=== PATIENT | female | born 1945 | race Caucasian/White ===

== ENCOUNTER 2024-07-06 12:35 | Inpatient (IN) | payer MEDICARE, SELFPAY ==
[2024-07-06] VITALS (7 sets, daily range): BP systolic 102–132; BP diastolic 54–76; PULSE 80–120; RESP 13–20; TEMP 36.6–37.1; O2SAT 95–99; BMI 19.2; BMI 19.8
--- NOTE | ~2024-07-06 | XR_ITS ---
EXAMINATION: XR HIP, RIGHT CLINICAL INFORMATION: Right hip externally rotated and shortened COMPARISON: None available. TECHNIQUE: Single view of the pelvis and Two views of the right hip. FINDINGS: Acute displaced right femur intertrochanteric fracture extending to the right greater and lesser trochanter with varus angulation of the proximal femur . The left hip is adequately aligned. Bilateral sacroiliac joints and pubic symphysis are intact. No additional fractures are identified. Degenerative changes of the lower lumbar spine. XR/XR hip RT w [id number] IMPRESSION: Acute displaced right femur intertrochanteric fracture with involvement of the right greater and lesser trochanter and varus angulation of the proximal femur. Electronically signed by: Fam Sharma MD 07/06/2024 03:34 PM EDT
--- NOTE | ~2024-07-06 | FL_ITS ---
EXAMINATION: FLUOROSCOPY GUIDANCE FOR NEEDLE PLACEMENT CLINICAL INFORMATION: Hip fracture COMPARISON: Hip x-ray on October 17, 2023 TECHNIQUE: Fluoroscopy during hip fracture fixation FINDINGS: Intramedullary nail placement. FLUOROSCOPY TIME: 1.1 minutes DOSE AREA PRODUCT: 0.447 mGy-m2 (milligray-meter squared) FL/FL guidance in OR IMPRESSION: Fluoroscopy during fixation. Please see operative report for additional information. Electronically signed by: Ana Mensah MD 07/08/2024 12:01 PM EDT
--- NOTE | 2024-07-06 13:20 | ECG_ITS ---
Test Reason : UNWITNESSED FALL Blood Pressure : / mmHG Vent. Rate : 092 BPM Atrial Rate : 092 BPM P-R Int : 128 ms QRS Dur : 078 ms QT Int : 356 ms P-R-T Axes : 086 068 082 degrees QTc Int : 440 ms Normal sinus rhythm Nonspecific T wave abnormality Abnormal ECG No previous ECGs available Referred By: Ingris Arizmendi Electronically Signed By:Taz Pearce
[2024-07-06 13:44] LABS: Basophils Percent Auto 0.1 % (0-2); Eosinophils Absolute Auto 0.1 X10*3/uL (0.0-0.4); Eosinophils Percent Auto 0.4 % (0-4); Hematocrit 39.2 % (37.0-47.0); Hemoglobin 13.6 g/dl (12.0-16.0); Imm Gran Abs Auto 0.19 X10*3/uL (0.00-0.03); Imm Gran Pct Auto 1.2 % (0.0-0.4); Lymphocytes Absolute Auto 1.5 X10*3/uL (1.2-4.9); Lymphocytes Percent Auto 9.6 % (20-40); MANUAL DIFF FLAG SCAN; Mean Corpuscular HGB Conc 34.7 g/dl (31.0-35.0); Mean Corpuscular Hemoglobin 30.8 pg (27.0-33.0); Mean Corpuscular Volume 88.7 fL (80.0-98.0); Mean Platelet Volume 9.3 fL (9.4-12.3); Monocytes Absolute Auto 1.6 X10*3/uL (0.1-1.2); Monocytes Percent Auto 10.6 % (2-11); Neutrophils Percent Auto 78.1 % (45-73); Platelet Count 492 X10*3/uL (160-400); Red Blood Count 4.42 X10*6/uL (4.20-5.50); SCAN SMEAR FLAG 1; White Blood Count 15.4 X10*3/uL (4.8-10.8)
--- NOTE | 2024-07-06 13:53 | PC.NURSE ---
Pt to xray.
--- NOTE | 2024-07-06 14:01 | ED_ITS ---
HPI - Fall General Chief Complaint: Fall Stated Complaint: 4+ days down s/p fall- R hip deform Time Seen by Provider: 07/06/24 12:42 Source: patient Mode of arrival: ambulatory Limitations: no limitations History of Present Illness ED Provider: CAIO JON PA-C HPI Narrative: 79 year old female with no significant pmhx presents to the ED today via EMS from home for evaluation of right hip pain s/p fall unknown amount of days ago. Patient reports moving into a new house. She had just finished unloading boxes when she fell to the ground hard onto the right side of her body. Reports immediate hip pain. She recalls the fall. Denies head strike or LOC. States she was too mentally and physical exhausted, prompting her to stay on the ground hoping that it would get better . Endorses crawling around on the floor for days, waiting for her pain to improve. Has been consuming popcicles and voiding into a self made diaper. Reports calling a friend today to help her out around the house. Upon friend's arrival, she insisted patient come to the ED for further eval and EMS was called for transport. At present, endorses 3/10 right hip pain, worse with movement of the hip. Took 3 excedrin this morning. No other physical complaints at present. Related Data Allergies Allergy/AdvReac Type Severity Reaction Status Date / Time No Known Allergies Allergy Verified 07/06/24 13:15 Review of Systems 2 Review of Systems: Constitutional: No fever, chills, fatigue, night sweats, weight changes ENT/Mouth: No ear pain, hearing loss, nasal congestion, sinus pain, rhinorrhea, sore throat Eyes: No eye pain, swelling, redness, vision changes, discharge Cardio: No chest pain, palpitations, ONEILL, orthopnea, peripheral edema Pulm: No SOB, cough, sputum, wheezing, dyspnea, hemoptysis GI: No nausea, vomiting, hematemesis, abdominal pain, diarrhea, constipation, hematochezia, melena : No irregular bleeding, dysuria, frequency, urgency, hesitancy, hematuria, flank pain, urinary flow changes, urinary incontinence or retention MSK: No back pain, neck pain, joint pain, myalgias, +right hip pain Skin: No lesions, rashes Neuro: No weakness, numbness, paresthesias, LOC, dizziness, headache Psych: No anxiety/panic, depression, SI/HI, AH/VH All other systems reviewed and are negative. [facility] Past Medical History Attestation statement: The following information was validated with the patient. Source: old records reviewed and nursing notes reviewed Social History Social History Advance Directives: No Advance Directives Information Provided: Yes Physical Exam 2 Vital Signs: Vital Signs: Last Vital Signs Temp 98.7 F 07/06/24 13:04 Pulse 82 07/06/24 15:27 Resp 19 07/06/24 15:27 BP 116/62 07/06/24 15:27 Pulse Ox 98 07/06/24 15:27 O2 Del Method Room Air 07/06/24 15:27 BMI result Body Mass Index 19.2 Vital signs stable General: Well appearing, in no acute distress. Skin: See below Head: Normocephalic, atraumatic. No palpable skull fracture or signs of trauma. EENT: Hearing is intact b/l. Conjunctiva clear. PERRLA. EOM intact. Moist mucous membranes.? Neck: Supple without LAD. FROM. Trachea midline.? Cardiac: Chest wall symmetric. RRR. Repiratory: Normal respiratory effort without accessory muscle use. CTA bilaterally. Abdomen: Soft, non-tender, non-distended. No rebound tenderness or guarding. Positive BS x4. Back: No midline spinous or paraspinal tenderness. No step off deformity. Ext: + right hip/buttock/thigh with areas of healing ecchymosis. Right lower extremity externally rotated and shortened. Able to move the right hip with discomfort. 2+ PT/DP and popliteal pulse intact. Sensation intact. Unable to bear weight on her right lower extremity. Neuro: AOx3. Normal speech. Psych: Appropriate mood and affect. Responds appropriately to questions. Course Course Course Narrative: 1411 -- patient has leukocytosis to 15.4 without left shift. Likely secondary to fracture. No anemia. H&H stable. Chemistry with hypokalemia to 3.1. Magnesium WNL. Will order repletion. BUN slightly elevated at 24, creatinine WNL. Creatinine kinase 363 however no concern for acute rhabdo. Will order 1 L of IV fluids. Troponin 7.5. CRP elevated to 3.18. Ethanol undetectable. > xr right hip with noted femoral neck fracture. will reach out to ortho. official read pending. 1502 -- will call order clerk ortho BRITTANI Luke at bedside to evaluate patient. noted intertrochanteric fracture on XR. Darion states that ortho plans to operate tomorrow however given that patient has not seen a physician since she was a child, she will need clearance for surgery. He is recommending admission to medicine for medical clearance for surgery tomorrow. I did discuss with hospitalist Dr. Lockett who is agreeable to admission. Medications Administered Generic Name Dose Route Start Last Admin Trade Name Freq PRN Reason Stop Dose Admin Potassium Chloride 10 meq in 100 mls @ 100 mls/hr 07/06/24 14:15 07/06/24 15:26 Potassium Chloride/H20 IV 07/06/24 16:14 100 mls/hr Q1H JOSE Administration Discontinued Medications Generic Name Dose Route Start Last Admin Trade Name Freq PRN Reason Stop Dose Admin Acetaminophen 975 mg 07/06/24 14:16 07/06/24 14:25 Acetaminophen 325 Mg Tablet PO 07/06/24 14:17 975 mg ONCE ONE Administration Sodium Chloride 1,000 mls @ 999 mls/hr 07/06/24 14:15 07/06/24 14:27 Ns IV 07/06/24 15:15 999 mls/hr .Q1H1M JOSE Administration Potassium Chloride 60 meq 07/06/24 14:07 07/06/24 14:25 Potassium Chloride Packet 20 Meq Packet PO 07/06/24 14:08 60 meq ONCE ONE Administration Medical Decision Making Medical Decision Making MDM Narrative: 79 year old female with no significant pmhx presents to the ED today via EMS from home for evaluation of right hip pain s/p fall unknown amount of days ago. Vital signs stable. She is nontoxic appearing in no acute distress. A&O x3. Exam is nonfocal. On exam of right lower extremity, right hip/buttock/thigh with areas of healing ecchymosis. Right lower extremity externally rotated and shortened. Able to move the right hip with discomfort. 2+ PT/DP and popliteal pulse intact. Sensation intact. Unable to bear weight on her right lower extremity. Head is normocephalic atraumatic. No palpable skull fracture or signs of trauma. No midline spinous tenderness or step-off deformity. Differential diagnosis includes contusion, fracture, hematoma, dislocation, anemia, electrolyte abnormality, dehydration, rhabdomyolysis, urinary tract infection. Unlikely ICH, CVA/TIA. Plan for labs, UA, hip imaging, pain control, and re-evaluation. I do not feel as though head imaging is waranted at this time as patient denies head strike and her exam is nonfocal. Differential Diagnosis Differential Diagnoses: The differential diagnosis associated with the presentation includes As above Admission/Observation Consideration of admission/observation: Escalation of care including admission/observation considered Patient to be admitted to medicine for medical clearance with plan for surgery tomorrow. Consult Healthcare Provider Management of the patient was discussed with: Hospitalist (Dr. Lockett) and Heel Seat Flap Stapler (Darion PETER) Lab Data MDM Lab Attestation statement: I reviewed the patient's lab results. As above 07/06/24 13:36 07/06/24 13:36 Labs: Lab Results 07/06/24 07/06/24 07/06/24 Range/Units 13:36 13:38 14:46 WBC 15.4 H (4.8-10.8) X10*3/uL RBC 4.42 (4.20-5.50) X10*6/uL Hgb 13.6 (12.0-16.0) g/dl Hct 39.2 (37.0-47.0) % MCV 88.7 (80.0-98.0) fL MCH 30.8 (27.0-33.0) pg MCHC 34.7 (31.0-35.0) g/dl RDW 13.0 (11.0-16.0) % Plt Count 492 H (160-400) X10*3/uL MPV 9.3 L (9.4-12.3) fL Immature Gran % (Auto) 1.2 H (0.0-0.4) % Neut % (Auto) 78.1 H (45-73) % Lymph % (Auto) 9.6 L (20-40) % [place] % (Auto) 10.6 (2-11) % Eos % (Auto) 0.4 (0-4) % Baso % (Auto) 0.1 (0-2) % Lymph # (Auto) 1.5 (1.2-4.9) X10*3/uL [place] # (Auto) 1.6 H (0.1-1.2) X10*3/uL Eos # (Auto) 0.1 (0.0-0.4) X10*3/uL Baso # (Auto) 0.0 (0.0-0.2) X10*3/uL Abs Immat Gran (auto) 0.19 H (0.00-0.03) X10*3/uL Absolute Neuts (auto) 12.0 H (2.0-8.3) x10*3/uL Absolute Nucleated RBC 0.000 (0.0-0.012) X10*3/uL Nucleated RBC % (auto) 0.0 (0.0-0.2) /100WBC Smear Tech's Comments VERIFIED ESR 17 (0-20) MM/HR Hold Purple Top SEE NOTE Sodium 140 (135-145) mmol/L Potassium 3.1 L (3.3-5.1) mmol/L Chloride 100 (96-108) mmol/L Carbon Dioxide 29 (22-29) mmol/L Anion Gap 14 (12-20) BUN 24 H (9-16) mg/dL Creatinine 0.65 (0.5-1.4) mg/dL Estim Creat Clear Calc 54.3 Estimated GFR > 60 Random Glucose 139 H (60-115) mg/dL Calcium 9.0 (8.4-10.2) mg/dL Magnesium 2.1 (1.6-2.6) mg/dL Total Bilirubin 1.5 H (0.0-1.0) mg/dL AST 49 H (5-31) U/L ALT 34 H (0-31) U/L Alkaline Phosphatase 81 (39-117) U/L Total Creatine Kinase 363 H (26-140) U/L Troponin I High Sens 7.5 (<3.5-17.0) ng/L C-Reactive Protein 3.18 H (< or = 0.50) mg/dL Total Protein 5.9 L (6.5-8.0) g/dL Albumin 3.3 L (3.5-5.0) g/dL Lipase 33 (8-78) U/L Urine Color Dark Yellow Urine Appearance Clear Urine pH 6.0 (5.0-9.0) Ur Specific [place] 1.025 (1.005-1.025) Urine Protein 30 (1+) H (Neg-Trace) mg/dL Urine Glucose (UA) Negative (Negative) mg/dL Urine Ketones Trace (Negative) mg/dL Urine Blood Small (1+) H (Negative) Urine Nitrite Negative (Negative) Ur Leukocyte Esterase Negative (Negative) Urine RBC 6-10 H (0-2) /HPF Urine WBC 0-5 (0-5) /HPF Ur Squamous Epith Cells 0-2 (0-2) /HPF Urine Bacteria 2+ (None Seen) Hyaline Casts 0-2 (0-2) /LPF Urine Opiates Screen Not Detected (Not Detect) Ur Buprenorphine Scrn Not Detected (Not Detect) ng/mL Ur Oxycodone Screen Not Detected (Not Detect) ng/mL Urine Methadone Screen Not Detected (Not Detect) ng/mL Urine Fentanyl Screen Not Detected (Not Detect) Ur Barbiturates Screen Not Detected (Not Detect) Ur Phencyclidine Scrn Not Detected (Not Detect) Ur Amphetamines Screen Not Detected (Not Detect) U Benzodiazepines Scrn Not Detected (Not Detect) Urine Cocaine Screen Not Detected (Not Detect) U Marijuana (THC) Screen Not Detected (Not Detect) Ethyl Alcohol < 10 mg/dL Influenza Type A (PCR) NEGATIVE (Negative) Influenza Type B (PCR) NEGATIVE (Negative) RSV RNA Qual (PCR) NEGATIVE (Negative) SARS-CoV-2 RNA (RT-PCR) NEGATIVE (Negative) Independent Interpretation I performed an independent interpretation of an: Plain X-Ray Interpretation: X-ray right hip with intertrochanteric fracture, agree with radiologist's interpretation. Radiology Impression Discussion of test interpretation with radiology: I have reviewed the radiologist's reading. Radiologist Impression: EXAMINATION: XR HIP, RIGHT CLINICAL INFORMATION: Right hip externally rotated and shortened COMPARISON: None available. TECHNIQUE: Single view of the pelvis and Two views of the right hip. FINDINGS: Acute displaced right femur intertrochanteric fracture extending to the right greater and lesser trochanter with varus angulation of the proximal femur . The left hip is adequately aligned. Bilateral sacroiliac joints and pubic symphysis are intact. No additional fractures are identified. Degenerative changes of the lower lumbar spine. XR/XR hip RT w [id number] IMPRESSION: Acute displaced right femur intertrochanteric fracture with involvement of the right greater and lesser trochanter and varus angulation of the proximal femur. Electronically signed by: Fam Sharma MD 07/06/2024 03:34 PM EDT Independent Historian Clinical information obtained from an independent historian. History obtained from or confirmed by: EMS Prescription Management I considered prescription management with: Pain Medication Social Determinants Patient?s care significantly limited by Social Determinants of Health including: Other Social Determinant of Health Critical Care Time Critical Care Time Critical Care Time: Yes Total Critical Care Time: 31 Attestation: Critical care time in the amount of 31 minutes has been provided to the patient in terms of direct patient care, frequent reevaluation, consultation with orthopedics and hospitalist, review and interpretation of medical data and results, and management of potentially life-threatening conditions. This is all outside of any medical procedures. Discharge Plan Discharge Clinical Impression: Fracture of femoral neck, right, Hypokalemia Patient Disposition: Admitted As Inpatient Print Language: Greenlandic
[2024-07-06 14:02] LABS: Alanine Aminotransferase 34 U/L (0-31); Albumin Level 3.3 g/dL (3.5-5.0); Alkaline Phosphatase 81 U/L (39-117); Anion Gap 14 (12-20); Aspartate Amino Transferase 49 U/L (5-31); Bilirubin Total 1.5 mg/dL (0.0-1.0); Blood Urea Nitrogen 24 mg/dL (9-16); C Reactive Protein 3.18 mg/dL (< or = 0.50); Carbon Dioxide 29 mmol/L (22-29); Chloride 100 mmol/L (96-108); Creatinine Clr Calc Pharmacy 54.3; Estimated Glomerular Filt Rate > 60; Ethanol < 10 mg/dL; Glucose Random 139 mg/dL (60-115); Lipase 33 U/L (8-78); Magnesium 2.1 mg/dL (1.6-2.6); Potassium 3.1 mmol/L (3.3-5.1); Sodium 140 mmol/L (135-145); Total Protein 5.9 g/dL (6.5-8.0)
[2024-07-06 14:04] LABS: SLIDE REVIEW VERIFIED
[2024-07-06 14:07] LABS: Troponin-I High Sensitivity 7.5 ng/L (<3.5-17.0)
[2024-07-06 14:24] LABS: Erythrocyte Sedimentation Rate 17 MM/HR (0-20)
[2024-07-06] MEDS: Potassium Chloride Packet 20 MEQ PACKET 60 MEQ PO (14:25)
[2024-07-06] MEDS: Acetaminophen 325 MG TABLET 975 MG PO (14:25)
[2024-07-06] MEDS: 0.9 % Sodium Chloride 1,000 ML 999 ML IV (14:27)
[2024-07-06] MEDS: Potassium Chloride/H20 10 MEQ/100 ML PIGGYBACK 100 MEQ IV ×2 (14:27→15:26)
[2024-07-06 14:32] LABS: Influenza A PCR NEGATIVE (Negative); Influenza B PCR NEGATIVE (Negative); Resp Syncy Virus RNA Qual PCR NEGATIVE (Negative); SARS COV2 PCR INHOUSE NEGATIVE (Negative)
--- NOTE | 2024-07-06 14:46 | PC.NURSE ---
Mata catheter inserted per order. Ortho at bedside at this time.
[2024-07-06 14:54] LABS: Appearance Urine Clear; Color Urine Dark Yellow; Glucose Urine UA Negative (Negative); Leukocyte Esterase Urine Negative (Negative); Nitrite Urine Negative (Negative); Specific Gravity - Urine 1.025 (1.005-1.025); UMIC TRIGGER UACC YES; Urine Blood Small (1+) (Negative); Urine Ketones Trace mg/dL (Negative); Urine Protein 30 (1+) mg/dL (Neg-Trace)
[2024-07-06 14:56] LABS: Bacteria Urine 2+ (None Seen); Hyaline Casts Urine 0-2 /LPF (0-2); Squamous Epithelial Cell Urine 0-2 /HPF (0-2); WBC Urine 0-5 /HPF (0-5)
[2024-07-06 15:05] LABS: Amphetamine Screen Urine Not Detected (Not Detect); Barbiturates, Urine Not Detected (Not Detect); Benzodiazepines Screen Urine Not Detected (Not Detect); Buprenorphine Scr Not Detected (Not Detect); Cannabinoid Screen Urine Not Detected (Not Detect); Cocaine Screen Urine Not Detected (Not Detect); Fentanyl, urine Not Detected (Not Detect); Methadone Screen, Urine Not Detected (Not Detect); Opiate Screen Urine Not Detected (Not Detect); Oxycodone Screen Urine Not Detected (Not Detect); Phencyclidine Screen Urine Not Detected (Not Detect)
--- NOTE | 2024-07-06 15:20 | PM.CNOR ---
History of Present Illness HPI Consult date: 07/06/24 Chief complaint: hip fracture Narrative: Patient is a 79-year-old female who presents to the emergency department after a fall on approximately June 27, although patient was unable to recall exact date of injury. The patient states that she is unable to recall what caused her fall, but she states that she did fall very hard onto her right hip. 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 The patient states that since her fall, she has been crawling around her house, and has been eating only the popsicles that she had readily accessible from her freezer. The patient states that she has not seen a doctor in many years, if at all, and reports that she has no known past medical history and takes no medication. The patient reports that she was on the floor for several days crawling around, and that her friend is the one who called the ambulance to bring her to the hospital. The patient reports that she is still experiencing significant discomfort in her right hip, but denies any pain elsewhere in her body. The patient denies any redness, swelling, or pain in her calf or distal right lower extremity. Patient denies any numbness or tingling in the right lower extremity. No other acute complaints or concerns at this time. Review of Systems Review of Systems: Yes all other systems are reviewed and are negative [facility] Social History Social History Patient Tobacco Use Status: Current everyday Tobacco user Meds Allergies Allergy/AdvReac Type Severity Reaction Status Date / Time No Known Allergies Allergy Verified 07/06/24 13:15 Active Medications: Current Medications Potassium Chloride (Potassium Chloride/H20) 10 meq in 100 mls @ 100 mls/hr IV Q1H JOSE Stop: 07/06/24 16:14 Last Admin: 07/06/24 14:27 Dose: 100 mls/hr Home Medications ?Medication ?Instructions ?Recorded ?Confirmed ?Last Taken ?Type acetaminophen 500 mg tablet 1,000 mg PO DAILY PRN Pain 07/06/24 07/06/24 07/06/24 History Physical Exam Vital Signs: Vital Signs: Last Vital Signs Temp 98.7 F 07/06/24 13:04 Pulse 97 07/06/24 13:11 Resp 13 07/06/24 13:11 BP 129/76 07/06/24 13:11 Pulse Ox 96 07/06/24 13:11 O2 Del Method Room Air 07/06/24 13:11 BMI result Body Mass Index 19.2 Extrem: Other: On inspection, there is noted to be some healing ecchymosis of the right hip RLE shortened and externally rotated No edema, erythema, ecchymosis of the distal RLE noted Patient is able to flex and extend the digits of the R foot without difficulty Distal sensation intact Capillary refill brisk Compartments soft, nontender Results Labs 07/06/24 13:36 07/06/24 13:36 Labs: Abnormal lab results 07/06/24 07/06/24 Range/Units 13:36 14:46 WBC 15.4 H (4.8-10.8) X10*3/uL Plt Count 492 H (160-400) X10*3/uL MPV 9.3 L (9.4-12.3) fL Immature Gran % (Auto) 1.2 H (0.0-0.4) % Neut % (Auto) 78.1 H (45-73) % Lymph % (Auto) 9.6 L (20-40) % [place] # (Auto) 1.6 H (0.1-1.2) X10*3/uL Abs Immat Gran (auto) 0.19 H (0.00-0.03) X10*3/uL Absolute Neuts (auto) 12.0 H (2.0-8.3) x10*3/uL Potassium 3.1 L (3.3-5.1) mmol/L BUN 24 H (9-16) mg/dL Random Glucose 139 H (60-115) mg/dL Total Bilirubin 1.5 H (0.0-1.0) mg/dL AST 49 H (5-31) U/L ALT 34 H (0-31) U/L Total Creatine Kinase 363 H (26-140) U/L C-Reactive Protein 3.18 H (< or = 0.50) mg/dL Total Protein 5.9 L (6.5-8.0) g/dL Albumin 3.3 L (3.5-5.0) g/dL Urine Protein 30 (1+) H (Neg-Trace) mg/dL Urine Blood Small (1+) H (Negative) Urine RBC 6-10 H (0-2) /HPF H & H 07/06/24 Range/Units 13:36 Hgb 13.6 (12.0-16.0) g/dl Hct 39.2 (37.0-47.0) % All other labs normal. Diagnostic results Hip x-ray: report reviewed and image reviewed (X-rays obtained in the office today and independently reviewed by me, Darion Luke PA-C, demonstrate displaced intertrochanteric fracture of right hip with shortening. ) Assessment and Plan (1) Intertrochanteric fracture of right hip: Status: Acute Plan 1. Closed intertrochanteric fracture of right hip Date of injury approximately 06/27/2024 Patient should be admitted to the [facility] internal medicine service for intertrochanteric fracture of right hip in the setting of unknown medical history Patient is educated about this injury and the treatment options available, namely surgery Patient would like to proceed with operative intervention on the right hip after discussion of risks and benefits of surgery versus conservative management I educated the patient about the condition. I discussed both operative and nonoperative treatment options. The patient would like to proceed with surgery. The risks and benefits of operative treatment were discussed with the patient and the patient wishes to proceed with surgery. These risks include, but are not limited to, risk of damage to blood vessels, nerves, tendons, infection, recurrence, incomplete relief of preoperative symptoms, persistent pain, possible need for further surgery, and the risks associated with regional blocks and/or anesthesia. Plan is to take the patient to the operating room tomorrow for the following procedures: 1. Right hip IM nail All of the preoperative paperwork including the consent was discussed today. All of the patient's questions were answered in the clinic today. The patient understands that they will be in contact with our certified surgical assistant to discuss scheduling their procedure. Patient denies diabetes, blood thinners, asthma, heart issues, lung issues, kidney issues, or current smoking. However, the patient does report that it has been many years since she has seen a doctor, and she will require a full medical workup and clearance for surgery. NPO at midnight No anticoagulation Continue with all other recommendations per Medicine Procedures Date of Service Date of Service: 07/06/24
--- NOTE | 2024-07-06 15:49 | PM.IMHP ---
History of Present Illness Date of Service: 07/06/24 Chief Complaint: right hip pain 79yo F with no chronic medical conditions and who hasn't seen a doctor since she was a child, recently moved into a new house and was unpacking boxes by herself [she lives alone] when she fell on to the R side of her body with immediate pain. No lightheadedness preceding the fall and no LOC. No head trauma. She was crawling around on the ground for an estimated 9 days, eating popsicles out of her freezer and voiding onto a makeshift diaper. A friend finally came to check on her and insisted she come to the ED for evaluation. She was found to have an acute displaced right femur intertrochanteric fracture with involvement of the right greater and lesser trochanter and varus angulation of the proximal femur. She estimates her pain is 3/10. At baseline, she has no chest pain, lightheadedness, palpitations, or dyspnea with such tasks as walking, climbing several flights of stairs, or lifting boxes. She thinks she fell because she was just exhausted. Review of Systems Review of Systems: Yes all other systems are reviewed and are negative [facility] Social History Advance Directives: No Advance Directives Information Provided: Yes Narrative: No past medical history No past surgical history Not on medications No known allergies Not a smoker or drinker Meds Allergies Allergy/AdvReac Type Severity Reaction Status Date / Time No Known Allergies Allergy Verified 07/06/24 13:15 Active Medications: Current Medications Potassium Chloride (Potassium Chloride/H20) 10 meq in 100 mls @ 100 mls/hr IV Q1H JOSE Stop: 07/06/24 16:14 Last Admin: 07/06/24 15:26 Dose: 100 mls/hr Physical Exam Vital Signs and Narrative: Vital Signs: Last Vital Signs Temp 98.7 F 07/06/24 13:04 Pulse 82 07/06/24 15:27 Resp 19 07/06/24 15:27 BP 116/62 07/06/24 15:27 Pulse Ox 98 07/06/24 15:27 O2 Del Method Room Air 07/06/24 15:27 BMI result Body Mass Index 19.2 Gen: in no acute distress HEENT: sclera anicteric, moist mucus membranes Neck: supple Lungs: clear to auscultation bilaterally Heart: regular rate and rhythm, no murmurs Abd: soft, non-tender, non-distended Ext: no edema, R hip externally rotated and R leg shortened; distally neurovascularly intact Skin: warm/well-perfused Neuro: alert and oriented x3, no focal findings Psych: appropriate affect Results Labs 07/06/24 13:36 07/06/24 13:36 Labs: Laboratory Results - last 24 hr 07/06/24 07/06/24 07/06/24 13:36 13:38 14:46 MCV 88.7 MCH 30.8 MCHC 34.7 RDW 13.0 Plt Count 492 H MPV 9.3 L Immature Gran % (Auto) 1.2 H Neut % (Auto) 78.1 H Lymph % (Auto) 9.6 L [place] % (Auto) 10.6 Eos % (Auto) 0.4 Baso % (Auto) 0.1 Lymph # (Auto) 1.5 [place] # (Auto) 1.6 H Eos # (Auto) 0.1 Baso # (Auto) 0.0 Abs Immat Gran (auto) 0.19 H Absolute Neuts (auto) 12.0 H Absolute Nucleated RBC 0.000 Nucleated RBC % (auto) 0.0 Smear Tech's Comments VERIFIED ESR 17 Hold Purple Top SEE NOTE Anion Gap 14 Estim Creat Clear Calc 54.3 Estimated GFR > 60 Random Glucose 139 H Calcium 9.0 Magnesium 2.1 Total Bilirubin 1.5 H AST 49 H ALT 34 H Alkaline Phosphatase 81 Total Creatine Kinase 363 H Troponin I High Sens 7.5 C-Reactive Protein 3.18 H Total Protein 5.9 L Albumin 3.3 L Lipase 33 Urine Color Dark Yellow Urine Appearance Clear Urine pH 6.0 Ur Specific [place] 1.025 Urine Protein 30 (1+) H Urine Glucose (UA) Negative Urine Ketones Trace Urine Blood Small (1+) H Urine Nitrite Negative Ur Leukocyte Esterase Negative Urine RBC 6-10 H Urine WBC 0-5 Ur Squamous Epith Cells 0-2 Urine Bacteria 2+ Hyaline Casts 0-2 Urine Opiates Screen Not Detected Ur Buprenorphine Scrn Not Detected Ur Oxycodone Screen Not Detected Urine Methadone Screen Not Detected Urine Fentanyl Screen Not Detected Ur Barbiturates Screen Not Detected Ur Phencyclidine Scrn Not Detected Ur Amphetamines Screen Not Detected U Benzodiazepines Scrn Not Detected Urine Cocaine Screen Not Detected U Marijuana (THC) Screen Not Detected Ethyl Alcohol < 10 Influenza Type A (PCR) NEGATIVE Influenza Type B (PCR) NEGATIVE RSV RNA Qual (PCR) NEGATIVE SARS-CoV-2 RNA (RT-PCR) NEGATIVE Imaging Radiologist's Impressions: Impressions Hip/Pelvis X-Ray 07/06/24 13:20 IMPRESSION: Acute displaced right femur intertrochanteric fracture with involvement of the right greater and lesser trochanter and varus angulation of the proximal femur. Electronically signed by: Fam Sharma MD 07/06/2024 03:34 PM EDT Assessment and Plan (1) Fracture of femoral neck, right: Status: Acute Plan 79yo ambulatory independently living F with no known medical conditions presenting 9 days after a mechanical fall, found to have displaced right femur intertrochanteric fracture femur fracture - admit to Med-Surg unit with Orthopedics consultation, NPO after midnight for operative fixation tomorrow; pain control with APAP/oxycodone/morphine; postoperatively will need 30d of Lovenox, PT - no known cardiac risk factors for surgery; EKG without Q waves or other ischemic changes; no further preoperative workup indicated hypoK - repleted in ED for K 3.1; recheck level in AM mild transaminasemia - suspect cross-reactivity with CPK, which is at a level below any risk for rhabdomyolysis; recheck LFTs in AM mild elevated bilirubin - suspect Gilbert's; recheck LFTs in AM leukocytosis - no localizing signs of infection; likely reactive to fracture VTE ppx - SCDs, start Lovenox postoperatively dispo - will need STR postop code - full I anticipate that the patient will stay at least 2 midnights as an inpatient in the hospital due to the above reasons. It is neither reasonable nor safe to care for them in a less acute setting. Quality Stroke Does the patient have a stroke diagnosis?: No VTE Prior VTE?: No VTE Risk Level:: Medical - moderate - high VTE Device Contraindication: N/A - Device Ordered VTE Drug Contraindication: Treatment Not Indicated
--- NOTE | 2024-07-06 16:32 | PHA.MEDREC ---
Addendum entered by Jordan Francisco RPh 07/06/24 17:19: MED CHECKED BY [facility] Original Note: Pharmacy Consult ? Medication Reconciliation Pharmacy has completed the medication reconciliation. Patient confirmed she is not taking any prescription medications. Patient states she takes a Tylenol 500mg tab 2 daily as needed and took 2 this afternoon she stated.
[2024-07-06 20:11] LABS: Bilirubin Direct 0.4 mg/dL (0.0-0.5)
[2024-07-06] MEDS: Lactated Ringers 1,000 ML 100 ML IVCONT (23:06)
[2024-07-06] MEDS: 0.9 % Sodium Chloride Flush 3 ML SYRINGE IVFLUSH (23:08)
[2024-07-07] VITALS (15 sets, daily range): BP systolic 107–169; BP diastolic 47–84; PULSE 66–89; RESP 12–18; TEMP 36.1–37.6; O2SAT 93–100; BMI 19.8
[2024-07-07 06:22] LABS: Hematocrit 30.9 % (37.0-47.0); Hemoglobin 10.2 g/dl (12.0-16.0); Mean Corpuscular Hemoglobin 30.4 pg (27.0-33.0); Mean Platelet Volume 9.2 fL (9.4-12.3); Platelet Count 367 X10*3/uL (160-400); Red Blood Count 3.36 X10*6/uL (4.20-5.50); Red Cell Distribution Width 13.5 % (11.0-16.0)
[2024-07-07 06:41] LABS: Alanine Aminotransferase 23 U/L (0-31); Albumin Level 2.5 g/dL (3.5-5.0); Alkaline Phosphatase 63 U/L (39-117); Anion Gap 9 (12-20); Aspartate Amino Transferase 29 U/L (5-31); Bilirubin Direct 0.4 mg/dL (0.0-0.5); Blood Urea Nitrogen 19 mg/dL (9-16); Carbon Dioxide 29 mmol/L (22-29); Chloride 104 mmol/L (96-108); Creatinine Clr Calc Pharmacy 65.3; Estimated Glomerular Filt Rate > 60; Glucose Random 120 mg/dL (60-115); Potassium 3.5 mmol/L (3.3-5.1); Sodium 138 mmol/L (135-145); Total Protein 4.2 g/dL (6.5-8.0)
[2024-07-07] MEDS: oxyCODONE HCl Immed Release 5 MG TABLET PO (07:31)
[2024-07-07] MEDS: Lactated Ringers 1,000 ML 100 ML IVCONT ×2 (08:43→22:51)
--- NOTE | 2024-07-07 09:27 | MHC.CM.PN ---
IMM DELIVERED PT LIVES ALONE AND IS INDEPENDENT AT BASELINE. +DRIVES +HCP NO PCP ( [facility] [place] [facility] [place]) DP: IT IS ANTICIPATED THAT PT WILL NEED REHAB, PT AGREEABLE TO THIS AND CHOOSES [facility] HER FIRST CHOICE. WILL NEED BLS TRANSPORT. CM WILL CONTINUE TO FOLLOW FOR ANY CHANGE TO DC PLAN/NEEDS
--- NOTE | 2024-07-07 09:54 | P.PNIM_ITS ---
Subjective Subjective Date of Service: 07/07/24 Interval History: Being followed for right hip fracture, NPO Orthopedic surgery scheduled for today. Complaining of hip pain otherwise denies nausea, no vomiting, no abdominal pain, no shortness of breath no cough, no URI symptoms denies fever, chills no headache dizziness, chest pain, no acute events overnight. Review of Systems All other system reviewed and are negative Physical Exam 2 Vital Signs: Vital Signs: Last Vital Signs Temp 98.1 F 07/07/24 08:15 Pulse 88 07/07/24 03:35 Resp 14 07/07/24 03:35 BP 120/80 07/07/24 08:15 Pulse Ox 93 07/07/24 08:15 O2 Del Method Room Air 07/07/24 08:15 BMI result Body Mass Index 19.8 Const: Other: Gen: in no acute distress sclera anicteric Neck: supple Lungs: clear to auscultation bilaterally Heart: regular rate and rhythm, no murmurs Abd: soft, non-tender, non-distended Ext: no edema, R hip externally rotated and R leg shortened, good peripheral pulses Skin: warm/well-perfused Neuro: alert and oriented x3, no focal findings Psych: appropriate affect Objective Data Active Medications Acetaminophen (Acetaminophen 325 Mg Tablet) 650 mg PO Q6H PRN PRN Reason: Pain, Mild (Pain Scale 1-3), fever or headache Calcium Carbonate (Calcium Carbonate 750 Mg Tab.Chew) 750 mg PO Q4H PRN PRN Reason: Heartburn Lactated Ringer's (Lr) 1,000 mls @ 100 mls/hr IVCONT .Q10H JOSE Last Admin: 07/07/24 08:43 Dose: 100 mls/hr Documented By: MALIKA Magnesium Hydroxide (Milk Of Magnesia 30 Ml Oral.Susp) 30 ml PO DAILY PRN PRN Reason: Constipation Melatonin (Melatonin 3 Mg Tablet) 6 mg PO BEDTIME PRN PRN Reason: Insomnia Morphine Sulfate (Morphine Sulfate 4 Mg/Ml Cartridge) 2 mg IVPUSH Q4H PRN; Protocol PRN Reason: Pain, Severe (Pain Scale 7-10) Ondansetron HCl (Ondansetron Hcl 4 Mg/2 Ml Vial) 4 mg IVPUSH Q8H PRN PRN Reason: Nausea and Vomiting Oxycodone HCl (Oxycodone Hcl Immed Release 5 Mg Tablet) 5 mg PO Q6H PRN PRN Reason: Pain, Moderate(Pain Scale 4-6) Last Admin: 07/07/24 07:31 Dose: 5 mg Documented By: TRACIE Sodium Chloride (0.9 % Sodium Chloride Flush 3 Ml Syringe) 3 ml IVFLUSH QSHIFT JOSE Last Admin: 07/07/24 07:33 Dose: Not Given Documented By: TRACIE Non-Admin Reason: IV Running Labs 07/07/24 05:58 07/07/24 05:58 Labs: Laboratory Results - last 24 hr 07/06/24 07/06/24 07/06/24 13:36 13:38 14:46 MCV 88.7 MCH 30.8 MCHC 34.7 RDW 13.0 Plt Count 492 H MPV 9.3 L Immature Gran % (Auto) 1.2 H Neut % (Auto) 78.1 H Lymph % (Auto) 9.6 L [place] % (Auto) 10.6 Eos % (Auto) 0.4 Baso % (Auto) 0.1 Lymph # (Auto) 1.5 [place] # (Auto) 1.6 H Eos # (Auto) 0.1 Baso # (Auto) 0.0 Abs Immat Gran (auto) 0.19 H Absolute Neuts (auto) 12.0 H Absolute Nucleated RBC 0.000 Nucleated RBC % (auto) 0.0 Smear Tech's Comments VERIFIED ESR 17 Hold Purple Top SEE NOTE Anion Gap 14 Estim Creat Clear Calc 54.3 Estimated GFR > 60 Random Glucose 139 H Calcium 9.0 Magnesium 2.1 Total Bilirubin 1.5 H Direct Bilirubin 0.4 AST 49 H ALT 34 H Alkaline Phosphatase 81 Total Creatine Kinase 363 H Troponin I High Sens 7.5 C-Reactive Protein 3.18 H Total Protein 5.9 L Albumin 3.3 L Lipase 33 Urine Color Dark Yellow Urine Appearance Clear Urine pH 6.0 Ur Specific [place] 1.025 Urine Protein 30 (1+) H Urine Glucose (UA) Negative Urine Ketones Trace Urine Blood Small (1+) H Urine Nitrite Negative Ur Leukocyte Esterase Negative Urine RBC 6-10 H Urine WBC 0-5 Ur Squamous Epith Cells 0-2 Urine Bacteria 2+ Hyaline Casts 0-2 Urine Opiates Screen Not Detected Ur Buprenorphine Scrn Not Detected Ur Oxycodone Screen Not Detected Urine Methadone Screen Not Detected Urine Fentanyl Screen Not Detected Ur Barbiturates Screen Not Detected Ur Phencyclidine Scrn Not Detected Ur Amphetamines Screen Not Detected U Benzodiazepines Scrn Not Detected Urine Cocaine Screen Not Detected U Marijuana (THC) Screen Not Detected Ethyl Alcohol < 10 Influenza Type A (PCR) NEGATIVE Influenza Type B (PCR) NEGATIVE RSV RNA Qual (PCR) NEGATIVE SARS-CoV-2 RNA (RT-PCR) NEGATIVE 07/07/24 05:58 MCV 92.0 MCH 30.4 MCHC 33.0 RDW 13.5 Plt Count 367 D MPV 9.2 L Immature Gran % (Auto) Neut % (Auto) Lymph % (Auto) [place] % (Auto) Eos % (Auto) Baso % (Auto) Lymph # (Auto) [place] # (Auto) Eos # (Auto) Baso # (Auto) Abs Immat Gran (auto) Absolute Neuts (auto) Absolute Nucleated RBC 0.000 Nucleated RBC % (auto) 0.0 Smear Tech's Comments ESR Hold Purple Top Anion Gap 9 L Estim Creat Clear Calc 65.3 Estimated GFR > 60 Random Glucose 120 H Calcium 8.0 L D Magnesium Total Bilirubin 1.0 Direct Bilirubin 0.4 AST 29 ALT 23 Alkaline Phosphatase 63 Total Creatine Kinase Troponin I High Sens C-Reactive Protein Total Protein 4.2 L Albumin 2.5 L Lipase Urine Color Urine Appearance Urine pH Ur Specific [place] Urine Protein Urine Glucose (UA) Urine Ketones Urine Blood Urine Nitrite Ur Leukocyte Esterase Urine RBC Urine WBC Ur Squamous Epith Cells Urine Bacteria Hyaline Casts Urine Opiates Screen Ur Buprenorphine Scrn Ur Oxycodone Screen Urine Methadone Screen Urine Fentanyl Screen Ur Barbiturates Screen Ur Phencyclidine Scrn Ur Amphetamines Screen U Benzodiazepines Scrn Urine Cocaine Screen U Marijuana (THC) Screen Ethyl Alcohol Influenza Type A (PCR) Influenza Type B (PCR) RSV RNA Qual (PCR) SARS-CoV-2 RNA (RT-PCR) Assessment and Plan (1) Intertrochanteric fracture of right hip: Status: Acute (2) Hypokalemia: Status: Acute (3) Fracture of femoral neck, right: Status: Acute Plan 79yo ambulatory independently living F with no known medical conditions presenting 9 days after a mechanical fall, found to have displaced right femur intertrochanteric fracture Right femur fracture - persistent hip pain NPO for orthopedic surgery scheduled for today, continue IV fluids Will continue APAP/oxycodone/morphine Lovenox for postoperative DVT prophylaxis/ PT - no known cardiac risk factors for surgery; EKG without Q waves or other ischemic changes hypoK repleted and normalized mild transaminasemia resolved likely due to fall and elevated CPK mild elevated bilirubin resolved leukocytosis likely reactive WBC trending down no fevers, no localizing signs of infection. VTE ppx - SCDs, start Lovenox postoperatively dispo PT eval code - full Patient will require continued inpatient hospitalization for management of acute right hip fracture requiring surgery and postoperative management. Quality Stroke Does the patient have a stroke diagnosis?: No VTE Prior VTE?: No VTE Risk Level:: Medical - moderate - high VTE Device Contraindication: N/A - Device Ordered VTE Drug Contraindication: Treatment Not Indicated
--- NOTE | 2024-07-07 10:27 | PC.NURSE ---
Addendum entered by Natasha Ordoñez RN 07/07/24 11:47: Confirmed with PACU nurse blood transfusion to be started in preop area. Original Note: Per PACU nurse Coy Anesthesiologist ordered 2 units for OR, 1 unit to be given in preop area and 1 unit to be on hold for OR.
--- NOTE | 2024-07-07 13:05 | HO.ANESPROP2 ---
HPI - Anesthesia Eval Consult details Narrative: 79 yo female patient for Right IM nailing PMFSH Active Problems Active Problems: All Active Problems Intertrochanteric fracture of right hip (Acute) Hypokalemia (Acute) Fracture of femoral neck, right (Acute) Anemia. 9 point drop in Hct. For transfusion Smoker Family History Family history of problems with anesthesia: No Surgical History History of Problems with Anesthesia: Yes ([place] teeth extraction) Social History Social History Household Members: None Housing: House Do you presently have visiting nurse or other home services: No Patient Tobacco Use Status: Current everyday Tobacco user Tobacco use type: Cigarette Cigarettes Per Day: 3 e-Cigarette/Vaping Use: Never Used service: No Meds Allergies Allergy/AdvReac Type Severity Reaction Status Date / Time No Known Allergies Allergy Verified 07/06/24 13:15 Active Medications: Current Medications Acetaminophen (Acetaminophen 325 Mg Tablet) 650 mg PO Q6H PRN PRN Reason: Pain, Mild (Pain Scale 1-3), fever or headache Calcium Carbonate (Calcium Carbonate 750 Mg Tab.Chew) 750 mg PO Q4H PRN PRN Reason: Heartburn Lactated Ringer's (Lr) 1,000 mls @ 100 mls/hr IVCONT .Q10H JOSE Last Infusion: 07/07/24 12:43 Dose: 0 mls/hr Magnesium Hydroxide (Milk Of Magnesia 30 Ml Oral.Susp) 30 ml PO DAILY PRN PRN Reason: Constipation Melatonin (Melatonin 3 Mg Tablet) 6 mg PO BEDTIME PRN PRN Reason: Insomnia Morphine Sulfate (Morphine Sulfate 4 Mg/Ml Cartridge) 2 mg IVPUSH Q4H PRN; Protocol PRN Reason: Pain, Severe (Pain Scale 7-10) Ondansetron HCl (Ondansetron Hcl 4 Mg/2 Ml Vial) 4 mg IVPUSH Q8H PRN PRN Reason: Nausea and Vomiting Oxycodone HCl (Oxycodone Hcl Immed Release 5 Mg Tablet) 5 mg PO Q6H PRN PRN Reason: Pain, Moderate(Pain Scale 4-6) Last Admin: 07/07/24 07:31 Dose: 5 mg Sodium Chloride (0.9 % Sodium Chloride Flush 3 Ml Syringe) 3 ml IVFLUSH QSHIFT [facility] Last Admin: 07/07/24 07:33 Dose: Not Given Home Medications ?Medication ?Instructions ?Recorded ?Confirmed ?Last Taken ?Type acetaminophen 500 mg tablet 1,000 mg PO DAILY PRN Pain 07/06/24 07/06/24 07/06/24 History Exam Height,Weight and Vital Signs: Height 5 ft 2 in Weight 49.2 kg Last Vital Signs Temp 98.8 F 07/07/24 12:54 Pulse 79 07/07/24 12:54 Resp 16 07/07/24 12:54 BP 107/57 L 07/07/24 12:54 Pulse Ox 95 07/07/24 12:54 O2 Del Method Room Air 07/07/24 12:54 Pertinent Lab Results Pertinent Lab Results: Laboratory Tests 07/06/24 07/06/24 07/06/24 13:36 13:38 14:46 WBC 15.4 H RBC 4.42 Hgb 13.6 Hct 39.2 MCV 88.7 MCH 30.8 MCHC 34.7 RDW 13.0 Plt Count 492 H MPV 9.3 L Immature Gran % (Auto) 1.2 H Neut % (Auto) 78.1 H Lymph % (Auto) 9.6 L [place] % (Auto) 10.6 Eos % (Auto) 0.4 Baso % (Auto) 0.1 Lymph # (Auto) 1.5 [place] # (Auto) 1.6 H Eos # (Auto) 0.1 Baso # (Auto) 0.0 Abs Immat Gran (auto) 0.19 H Absolute Neuts (auto) 12.0 H Absolute Nucleated RBC 0.000 Nucleated RBC % (auto) 0.0 Smear Tech's Comments VERIFIED ESR 17 Hold Purple Top SEE NOTE Sodium 140 Potassium 3.1 L Chloride 100 Carbon Dioxide 29 Anion Gap 14 BUN 24 H Creatinine 0.65 Estim Creat Clear Calc 54.3 Estimated GFR > 60 Random Glucose 139 H Calcium 9.0 Magnesium 2.1 Total Bilirubin 1.5 H Direct Bilirubin 0.4 AST 49 H ALT 34 H Alkaline Phosphatase 81 Total Creatine Kinase 363 H Troponin I High Sens 7.5 C-Reactive Protein 3.18 H Total Protein 5.9 L Albumin 3.3 L Lipase 33 Urine Color Dark Yellow Urine Appearance Clear Urine pH 6.0 Ur Specific [place] 1.025 Urine Protein 30 (1+) H Urine Glucose (UA) Negative Urine Ketones Trace Urine Blood Small (1+) H Urine Nitrite Negative Ur Leukocyte Esterase Negative Urine RBC 6-10 H Urine WBC 0-5 Ur Squamous Epith Cells 0-2 Urine Bacteria 2+ Hyaline Casts 0-2 Urine Opiates Screen Not Detected Ur Buprenorphine Scrn Not Detected Ur Oxycodone Screen Not Detected Urine Methadone Screen Not Detected Urine Fentanyl Screen Not Detected Ur Barbiturates Screen Not Detected Ur Phencyclidine Scrn Not Detected Ur Amphetamines Screen Not Detected U Benzodiazepines Scrn Not Detected Urine Cocaine Screen Not Detected U Marijuana (THC) Screen Not Detected Ethyl Alcohol < 10 Influenza Type A (PCR) NEGATIVE Influenza Type B (PCR) NEGATIVE RSV RNA Qual (PCR) NEGATIVE SARS-CoV-2 RNA (RT-PCR) NEGATIVE Blood Type Antibody Screen Crossmatch 07/07/24 07/07/24 05:58 10:43 WBC 13.0 H RBC 3.36 L D Hgb 10.2 L D Hct 30.9 L D MCV 92.0 MCH 30.4 MCHC 33.0 RDW 13.5 Plt Count 367 D MPV 9.2 L Immature Gran % (Auto) Neut % (Auto) Lymph % (Auto) [place] % (Auto) Eos % (Auto) Baso % (Auto) Lymph # (Auto) [place] # (Auto) Eos # (Auto) Baso # (Auto) Abs Immat Gran (auto) Absolute Neuts (auto) Absolute Nucleated RBC 0.000 Nucleated RBC % (auto) 0.0 Smear Tech's Comments ESR Hold Purple Top Sodium 138 Potassium 3.5 Chloride 104 Carbon Dioxide 29 Anion Gap 9 L BUN 19 H Creatinine 0.56 Estim Creat Clear Calc 65.3 Estimated GFR > 60 Random Glucose 120 H Calcium 8.0 L D Magnesium Total Bilirubin 1.0 Direct Bilirubin 0.4 AST 29 ALT 23 Alkaline Phosphatase 63 Total Creatine Kinase Troponin I High Sens C-Reactive Protein Total Protein 4.2 L Albumin 2.5 L Lipase Urine Color Urine Appearance Urine pH Ur Specific [place] Urine Protein Urine Glucose (UA) Urine Ketones Urine Blood Urine Nitrite Ur Leukocyte Esterase Urine RBC Urine WBC Ur Squamous Epith Cells Urine Bacteria Hyaline Casts Urine Opiates Screen Ur Buprenorphine Scrn Ur Oxycodone Screen Urine Methadone Screen Urine Fentanyl Screen Ur Barbiturates Screen Ur Phencyclidine Scrn Ur Amphetamines Screen U Benzodiazepines Scrn Urine Cocaine Screen U Marijuana (THC) Screen Ethyl Alcohol Influenza Type A (PCR) Influenza Type B (PCR) RSV RNA Qual (PCR) SARS-CoV-2 RNA (RT-PCR) Blood Type O Positive Antibody Screen NEGATIVE Crossmatch See Detail Airway Mallampati Class: II TM Dist: >3cm Neck ROM: Full Partial: Upper Loose/Missing/Broken Teeth: Yes Heart: RRR Lungs: CTAB Assessment and Plan Assessment Anesthesia Assessment: Anesthesia Plan Discussed and Chart Reviewed Final Anesthetic Review Family History of Problems with Anesthesia: No History of Problems with Anesthesia: Yes ([place] teeth extraction) NPO: Yes ASA Class: III and Emergency Final Preanesthetic Review: No Changes in Pt Med Stat, Meds/Allgs Chart Reviewed, Consent Obtained/Reviewed and Anes Risks/Benef Reviewed Patient Risk: Intermediate Procedure Risk: Intermediate Assessment/Block/Sedation in SS: Assess/Block/Sedation-SS Anesthetic Plan Anesthetic Plan: GA Disposition: Standard PACU
--- NOTE | 2024-07-07 14:01 | MHC.SHP ---
Pre-Procedural Eval Section A - 24 Hr Update-Section A only Date of Service: 07/07/24 The patient is an INPATIENT: Yes Changes since office visit: No Cold of Flu in the past 2 weeks, No New Medical Problems, No Changes in Medication and No Patient answered all questions The patient has been examined within 24 hours of the surgical procedure. The History & Physical has been completed within 30 days and I have reviewed it.: Yes Section B - Complete if H&P > 30 days Chief Complaint: hip fracture Allergies: Allergies Allergy/AdvReac Type Severity Reaction Status Date / Time No Known Allergies Allergy Verified 07/06/24 13:15 Plan I have reviewed the history and physical and performed a pertinent physical examination on my patient. No changes have occurred unless specified. Time Spent With Patient Time: Total time managing care of this patient today ____ minutes.
--- NOTE | 2024-07-07 15:23 | PM.OP ---
Brief Operative Note Date of Service: 07/07/24 Pre-op diagnosis: Right hip intertrochanteric femur fracture Post-op diagnosis: same Procedure: Right hip IMN Implants: [place] 125 deg 11x 340 imn with 85 mm hip screw and 45mm distal interlock Surgeon: Gabriel Romeo MD Anesthesia: GETA, GLMA and local Was an Community Arts Officer used for this Procedure?: No Estimated blood loss (mL): 150 IV fluids (mL): 750 Pathology: none sent Condition: stable Disposition: PACU
--- NOTE | 2024-07-07 16:37 | HO.SKINPHOTO ---
Right Ankle Right Elbow Left Elbow Bilateral elbows and right ankle abrasions. Pt states injuries are due to falling and being on ground for several days at home prior to admission. Foams applied, air mattress ordered, wound care nurse consulted.
[2024-07-07] MEDS: ceFAZolin Sodium/Dextrose,Iso 2 GM/50 ML PIGGYBACK IV (20:03)
[2024-07-07] MEDS: Morphine Sulfate 4 MG/ML CARTRIDGE 2 MG IVPUSH (23:00)
[2024-07-08 03:37] VITALS: BP 111/64; PULSE 94; RESP 16; TEMP 37.2; O2SAT 94
[2024-07-08 07:45] VITALS: BP 120/52; PULSE 93; RESP 18; O2SAT 95
--- NOTE | 2024-07-08 10:08 | PM.PNORT ---
Subjective Subjective Date of Service: 07/08/24 Interval history: POD1 s/p Rt hip IM Nail Patient is resting in bed No overnight events Pain is managed No additional complaints Physical Exam Vital Signs: Vital Signs: Last Vital Signs Temp 99 F 07/08/24 03:37 Pulse 93 07/08/24 07:45 Resp 18 07/08/24 07:45 BP 120/52 L 07/08/24 07:45 Pulse Ox 95 07/08/24 07:45 O2 Del Method Room Air 07/08/24 07:45 O2 Flow Rate 2 07/07/24 16:07 BMI result Body Mass Index 19.8 Const: General: cooperative, healthy appearing and no acute distress Resp: Effort & Inspection: normal respiratory effort and able to speak in complete sentences Cardio: Rate: regular rate Peripheral pulses: Peripheral pulses 2+ throughout GI: Palpation (GI): Soft to palpation Skin: Lesions: no lesions Rashes: no rashes Extrem: Other: right hip dressing is c/d/i. Able to dorsi/plantar flex. Calf is supple and nontender. Sensation intact. Pedal pulse intact. Procedures Date of Service Date of Service: 07/08/24 Progress Note: A&P Assessment and plan (1) Intertrochanteric fracture of right hip: Status: Acute Plan Continue pain mgmnt Begin Lovenox dvt ppx begin PT/OT for right hip IM Nail - WBAT Dispo planning-Pending PT eval, pain mgmnt Time Spent With Patient Time: Total time managing care of this patient today ____ minutes. Quality Stroke Does the patient have a stroke diagnosis?: No VTE Prior VTE?: No VTE Risk Level:: Medical - moderate - high VTE Device Contraindication: N/A - Device Ordered VTE Drug Contraindication: Treatment Not Indicated
[2024-07-08 10:35] LABS: Hematocrit 33.3 % (37.0-47.0); Hemoglobin 11.2 g/dl (12.0-16.0)
[2024-07-08] MEDS: Morphine Sulfate 4 MG/ML CARTRIDGE 2 MG IVPUSH ×2 (10:37→22:32)
--- NOTE | 2024-07-08 11:02 | P.PNIM_ITS ---
Subjective Subjective Date of Service: 07/08/24 Interval History: Complaining of right hip pain mostly with movement, tolerated breakfast no nausea, no vomiting, no abdominal pain, no diarrhea no other acute events overnight. Review of Systems All other system reviewed and are negative Physical Exam 2 Vital Signs: Vital Signs: Last Vital Signs Temp 99 F 07/08/24 03:37 Pulse 93 07/08/24 07:45 Resp 18 07/08/24 07:45 BP 120/52 L 07/08/24 07:45 Pulse Ox 95 07/08/24 07:45 O2 Del Method Room Air 07/08/24 07:45 O2 Flow Rate 2 07/07/24 16:07 BMI result Body Mass Index 19.8 Const: Other: Gen: in no acute distress sclera anicteric Neck: supple Lungs: clear to auscultation bilaterally Heart: regular rate and rhythm, no murmurs Abd: soft, non-tender, non-distended, bowel sounds audible Ext: no edema, R hip dressing in place Skin: warm/well-perfused Neuro: alert and oriented x3, no focal findings Psych: appropriate affect Objective Data Active Medications Acetaminophen (Acetaminophen 325 Mg Tablet) 650 mg PO Q6H PRN PRN Reason: Pain, Mild (Pain Scale 1-3), fever or headache Calcium Carbonate (Calcium Carbonate 750 Mg Tab.Chew) 750 mg PO Q4H PRN PRN Reason: Heartburn Enoxaparin Sodium (Enoxaparin Sodium 40 Mg/0.4 Ml Syringe) 40 mg SUBCUT Q24H JOSE Magnesium Hydroxide (Milk Of Magnesia 30 Ml Oral.Susp) 30 ml PO DAILY PRN PRN Reason: Constipation Melatonin (Melatonin 3 Mg Tablet) 6 mg PO BEDTIME PRN PRN Reason: Insomnia Morphine Sulfate (Morphine Sulfate 4 Mg/Ml Cartridge) 2 mg IVPUSH Q4H PRN; Protocol PRN Reason: Pain, Severe (Pain Scale 7-10) Last Admin: 07/08/24 10:37 Dose: 2 mg Documented By: LISA Naloxone HCl (Naloxone Hcl 0.4 Mg/Ml Vial) 0.04 mg IVPUSH Q5M PRN PRN Reason: Excessive sedation or RR < 8 Ondansetron HCl (Ondansetron Hcl 4 Mg/2 Ml Vial) 4 mg IVPUSH Q8H PRN PRN Reason: Nausea and Vomiting Oxycodone HCl (Oxycodone Hcl Immed Release 5 Mg Tablet) 5 mg PO Q6H PRN PRN Reason: Pain, Moderate(Pain Scale 4-6) Last Admin: 07/07/24 07:31 Dose: 5 mg Documented By: TRACIE Sodium Chloride (0.9 % Sodium Chloride Flush 3 Ml Syringe) 3 ml IVFLUSH QSHIFT [facility] Last Admin: 07/08/24 07:59 Dose: Not Given Documented By: LISA Non-Admin Reason: Previously Administered Labs 07/08/24 10:23 07/07/24 05:58 Labs: Laboratory Results - last 24 hr 07/07/24 10:43 Blood Type O Positive Antibody Screen NEGATIVE Crossmatch See Detail Assessment and Plan (1) Intertrochanteric fracture of right hip: Status: Acute (2) Hypokalemia: Status: Acute Plan 79yo ambulatory independently living F with no known medical conditions presenting 9 days after a mechanical fall, found to have displaced right femur intertrochanteric fracture Right femur fracture - status post right hip IMN postoperative day 1 continue APAP/oxycodone/morphine Stable H&H Add stool softeners hypoK repleted and normalized mild transaminasemia/elevated bili resolved likely due to fall and elevated CPK leukocytosis likely reactive WBC trending down no fevers, no localizing signs of infection, follow CBC. VTE ppx - Lovenox dispo follow PT eval code - full Patient will require continued inpatient hospitalization for management of postoperative management for right hip hip surgery, pain management and safe disposition Quality Stroke Does the patient have a stroke diagnosis?: No VTE Prior VTE?: No VTE Risk Level:: Medical - moderate - high VTE Device Contraindication: N/A - Device Ordered VTE Drug Contraindication: Treatment Not Indicated
[2024-07-08] MEDS: Enoxaparin Sodium 40 MG/0.4 ML SYRINGE SUBCUT (14:30)
[2024-07-08] MEDS: 0.9 % Sodium Chloride Flush 3 ML SYRINGE IVFLUSH ×2 (14:34→19:57)
--- NOTE | 2024-07-08 14:54 | HO.POSTANES ---
Post Anesthesia Evaluation Post Anesthesia Evaluation Date of Service: 07/08/24 Vital Signs: Vital Signs Temp Pulse Resp BP Pulse Ox O2 Del Method 07/08/24 07:45 93 18 120/52 L 95 Room Air 07/08/24 03:37 99 F 94 16 111/64 94 Room Air Anesthesia: General LMA Mental Status: Awake Pain Control: Satisfactory Nausea/Vomiting: None Hydration: Adequate Anesthesia-Related Issues: No Anes. Related Issues
--- NOTE | 2024-07-08 15:02 | MHC.CM.PN ---
PT eval complete. Acute Rehab is the recommendation. Referral updated. Awaiting bed offer.
[2024-07-08 15:30] VITALS: BP 118/56; PULSE 99; RESP 19; O2SAT 96
[2024-07-08] MEDS: Docusate Sodium 100 MG CAPSULE PO (19:57)
[2024-07-08 20:00] VITALS: BP 127/58; PULSE 85; RESP 18; TEMP 37.6; O2SAT 96
[2024-07-09 03:42] VITALS: BP 126/64; PULSE 92; RESP 16; TEMP 36.7; O2SAT 94
[2024-07-09 05:58] LABS: Hematocrit 30.9 % (37.0-47.0); Hemoglobin 10.3 g/dl (12.0-16.0); Mean Corpuscular HGB Conc 33.3 g/dl (31.0-35.0); Mean Corpuscular Hemoglobin 30.4 pg (27.0-33.0); Mean Corpuscular Volume 91.2 fL (80.0-98.0); Platelet Count 288 X10*3/uL (160-400); Red Blood Count 3.39 X10*6/uL (4.20-5.50); Red Cell Distribution Width 14.4 % (11.0-16.0); White Blood Count 12.7 X10*3/uL (4.8-10.8)
[2024-07-09 08:00] VITALS: BP 108/54; PULSE 95; RESP 18; O2SAT 95
--- NOTE | 2024-07-09 09:05 | MHC.CM.PN ---
CM met with patient who prefers [facility], as she does not feel she can tolerate acute rehab. Accepted bed at [facility], who will submit for auth.
[2024-07-09] MEDS: polyethylene glycoL 3350 17 GM POWD.PACK PO (09:18)
[2024-07-09] MEDS: 0.9 % Sodium Chloride Flush 3 ML SYRINGE IVFLUSH ×2 (09:18→21:13)
--- NOTE | 2024-07-09 09:23 | P.PNIM_ITS ---
Subjective Subjective Date of Service: 07/09/24 Interval History: Denies right hip pain at rest, limiting activity to avoid pain, no bowel movement, no nausea, no vomiting tolerating diet no other acute events overnight. Review of Systems All other system reviewed and are negative Physical Exam 2 Vital Signs: Vital Signs: Last Vital Signs Temp 98.1 F 07/09/24 03:42 Pulse 95 07/09/24 08:00 Resp 18 07/09/24 08:00 BP 108/54 L 07/09/24 08:00 Pulse Ox 95 07/09/24 08:00 O2 Del Method Room Air 07/09/24 08:00 O2 Flow Rate 2 07/07/24 16:07 BMI result Body Mass Index 19.8 Const: Other: Gen: in no acute distress sclera anicteric Neck: supple Lungs: clear to auscultation bilaterally Heart: regular rate and rhythm, no murmurs Abd: soft, non-tender, non-distended, bowel sounds audible Ext: no edema, R hip dressing in place Skin: warm/well-perfused Neuro: alert and oriented x3, no focal findings Psych: appropriate affect Objective Data Active Medications Acetaminophen (Acetaminophen 325 Mg Tablet) 650 mg PO Q6H PRN PRN Reason: Pain, Mild (Pain Scale 1-3), fever or headache Calcium Carbonate (Calcium Carbonate 750 Mg Tab.Chew) 750 mg PO Q4H PRN PRN Reason: Heartburn Docusate Sodium (Docusate Sodium 100 Mg Capsule) 100 mg PO BEDTIME COUNTS INCLUDE 234 BEDS AT THE [facility] Last Admin: 07/08/24 19:57 Dose: 100 mg Documented By: RENETTA Enoxaparin Sodium (Enoxaparin Sodium 40 Mg/0.4 Ml Syringe) 40 mg SUBCUT Q24H COUNTS INCLUDE 234 BEDS AT THE [facility] Last Admin: 07/08/24 14:30 Dose: 40 mg Documented By: LISA Magnesium Hydroxide (Milk Of Magnesia 30 Ml Oral.Susp) 30 ml PO DAILY PRN PRN Reason: Constipation Melatonin (Melatonin 3 Mg Tablet) 6 mg PO BEDTIME PRN PRN Reason: Insomnia Morphine Sulfate (Morphine Sulfate 4 Mg/Ml Cartridge) 2 mg IVPUSH Q4H PRN; Protocol PRN Reason: Pain, Severe (Pain Scale 7-10) Last Admin: 07/08/24 22:32 Dose: 2 mg Documented By: RENETTA Naloxone HCl (Naloxone Hcl 0.4 Mg/Ml Vial) 0.04 mg IVPUSH Q5M PRN PRN Reason: Excessive sedation or RR < 8 Ondansetron HCl (Ondansetron Hcl 4 Mg/2 Ml Vial) 4 mg IVPUSH Q8H PRN PRN Reason: Nausea and Vomiting Oxycodone HCl (Oxycodone Hcl Immed Release 5 Mg Tablet) 5 mg PO Q6H PRN PRN Reason: Pain, Moderate(Pain Scale 4-6) Last Admin: 07/07/24 07:31 Dose: 5 mg Documented By: TRACIE Polyethylene Glycol (Polyethylene Glycol 3350 17 Gm Powd.Pack) 17 gm PO DAILY COUNTS INCLUDE 234 BEDS AT THE [facility] Last Admin: 07/09/24 09:18 Dose: 17 gm Documented By: LISA Sodium Chloride (0.9 % Sodium Chloride Flush 3 Ml Syringe) 3 ml IVFLUSH QSHIFT COUNTS INCLUDE 234 BEDS AT THE [facility] Last Admin: 07/09/24 09:18 Dose: 3 ml Documented By: LISA Labs 07/09/24 05:46 07/07/24 05:58 Labs: Laboratory Results - last 24 hr 07/09/24 05:46 MCV 91.2 MCH 30.4 MCHC 33.3 RDW 14.4 Plt Count 288 MPV 9.0 L Absolute Nucleated RBC 0.000 Nucleated RBC % (auto) 0.0 Assessment and Plan (1) Intertrochanteric fracture of right hip: Status: Acute (2) Hypokalemia: Status: Acute Plan 79yo ambulatory independently living F with no known medical conditions presenting 9 days after a mechanical fall, found to have displaced right femur intertrochanteric fracture Right femur fracture - status post right hip IMN postoperative day 2 Pain with activity, continue APAP/oxycodone/morphine H&H dropped but above transfusion threshold Encourage activity, stool softeners, incentive spirometry PT recommends acute rehab hypoK repleted and normalized mild transaminasemia/elevated bili resolved likely due to fall and elevated CPK leukocytosis likely reactive WBC trending down no fevers, no localizing signs of infection, follow CBC. VTE ppx - Lovenox dispo acute rehab code - full Patient will require continued inpatient hospitalization for management of postoperative management for right hip hip surgery, pain management and safe disposition Quality Stroke Does the patient have a stroke diagnosis?: No VTE Prior VTE?: No VTE Risk Level:: Medical - moderate - high VTE Device Contraindication: N/A - Device Ordered VTE Drug Contraindication: Treatment Not Indicated
--- NOTE | 2024-07-09 10:14 | PM.PNORT ---
Subjective Subjective Date of Service: 07/09/24 Interval history: POD2 s/p Rt hip IM Nail Patient is resting in bed No overnight events Pain is managed No additional complaints Physical Exam Vital Signs: Vital Signs: Last Vital Signs Temp 98.1 F 07/09/24 03:42 Pulse 95 07/09/24 08:00 Resp 18 07/09/24 08:00 BP 108/54 L 07/09/24 08:00 Pulse Ox 95 07/09/24 08:00 O2 Del Method Room Air 07/09/24 08:00 O2 Flow Rate 2 07/07/24 16:07 BMI result Body Mass Index 19.8 Const: Other: Gen: in no acute distress sclera anicteric Neck: supple Lungs: clear to auscultation bilaterally Heart: regular rate and rhythm, no murmurs Abd: soft, non-tender, non-distended, bowel sounds audible Ext: no edema, R hip dressing in place Skin: warm/well-perfused Neuro: alert and oriented x3, no focal findings Psych: appropriate affect Procedures Date of Service Date of Service: 07/09/24 Progress Note: A&P Assessment and plan (1) Intertrochanteric fracture of right hip: Status: Acute Plan Continue pain mgmnt Continue Lovenox dvt ppx Continue PT/OT for right hip IM Nail - WBAT Dispo planning- PT, pain mgmnt Time Spent With Patient Time: Total time managing care of this patient today ____ minutes. Quality Stroke Does the patient have a stroke diagnosis?: No VTE Prior VTE?: No VTE Risk Level:: Medical - moderate - high VTE Device Contraindication: N/A - Device Ordered VTE Drug Contraindication: Treatment Not Indicated
[2024-07-09 10:17] LABS: Estimated Average Glucose 134 mg/dL; Hemoglobin A1C 127.4997 umol/L; Hemoglobin A1c % 6.3 % (<6.0)
[2024-07-09] MEDS: Enoxaparin Sodium 40 MG/0.4 ML SYRINGE SUBCUT (13:55)
[2024-07-09 15:39] VITALS: BP 114/55; PULSE 101; RESP 18; O2SAT 95
[2024-07-09 19:42] VITALS: BP 133/74; PULSE 97; RESP 18; TEMP 37.3; O2SAT 95
[2024-07-09] MEDS: Docusate Sodium 100 MG CAPSULE PO (21:05)
[2024-07-09] MEDS: oxyCODONE HCl Immed Release 5 MG TABLET PO (21:34)
[2024-07-10 03:59] VITALS: BP 140/70; PULSE 91; RESP 18; TEMP 36.9; O2SAT 95
[2024-07-10 07:12] VITALS: BP 109/59; PULSE 89; RESP 16; TEMP 36.7; O2SAT 95
[2024-07-10] MEDS: polyethylene glycoL 3350 17 GM POWD.PACK PO (07:57)
[2024-07-10] MEDS: 0.9 % Sodium Chloride Flush 3 ML SYRINGE IVFLUSH (07:57)
[2024-07-10] MEDS: oxyCODONE HCl Immed Release 5 MG TABLET PO ×2 (08:22→13:14)
--- NOTE | 2024-07-10 11:05 | MHC.CM.PN ---
Addendum entered by Jayla Angulo 07/10/24 12:34: AUTH OBTAINED, PT WILL DC TO [facility] TODAY AT 1400 HOURS VIA [facility] Original Note: PER MD ROUNDS, PT IS READY TO DC DCP: [facility] AT [facility] PENDING INSURANCE AUTH BLS TRANSPORT
--- NOTE | 2024-07-10 11:06 | MHC.CLN ---
NUTRITION CONSULT FOR MULTIPLE WOUNDS. PATIENT WITH REDNESS TO R HEEL, COCCYX, R ELBOW. ABRASIONS TO R ANKLE, L ELBOW. SURGICAL SITE R LEG. MOST RECENT INTAKE 75-100%. NO ADDITIONAL NUTRITION INTERVENTIONS AT THIS TIME.
[2024-07-10] MEDS: Enoxaparin Sodium 40 MG/0.4 ML SYRINGE SUBCUT (13:14)
--- NOTE | 2024-07-10 13:50 | PM.DS ---
DS: Providers Provider Date of Service: 07/10/24 Date of admission: 07/06/24 15:47 Date of discharge: 07/10/24 Primary care physician: None Physician Consults: 07/06/24 15:05 Consult to Orthopedics Routine Consulting Provider: [facility] Orthopedic Surgeons Reason for consultation: femur fx 07/07/24 16:47 Consult to Wound Care Routine Reason for consultation: bilateral elbows, right ankle wound DS: Diagnosis Discharge Diagnosis (1) Intertrochanteric fracture of right hip: Status: Acute DS: Summary Hospital Course Hospital Course: History of presenting illness: Date of Service: 07/06/24 Chief Complaint: right hip pain 79yo F with no chronic medical conditions and who hasn't seen a doctor since she was a child, recently moved into a new house and was unpacking boxes by herself [she lives alone] when she fell on to the R side of her body with immediate pain. No lightheadedness preceding the fall and no LOC. No head trauma. She was crawling around on the ground for an estimated 9 days, eating popsicles out of her freezer and voiding onto a makeshift diaper. A friend finally came to check on her and insisted she come to the ED for evaluation. She was found to have an acute displaced right femur intertrochanteric fracture with involvement of the right greater and lesser trochanter and varus angulation of the proximal femur. She estimates her pain is 3/10. At baseline, she has no chest pain, lightheadedness, palpitations, or dyspnea with such tasks as walking, climbing several flights of stairs, or lifting boxes. She thinks she fell because she was just exhausted. Hospital course: 79yo ambulatory independently living female with no known medical conditions presented 9 days after a mechanical fall, found to have displaced right femur intertrochanteric fracture admitted to medical floor and underwent right hip IMN on 07/07 , postprocedure doing well with good pain control, continue oxycodone and Tylenol, H&H dropped but above transfusion threshold, she has no lightheadedness, dizziness , no chest pain or palpitation, encourage incentive spirometry and activity as tolerated , continue PT, being discharged on 4 weeks of subcu Lovenox, recommend outpatient follow-up with Dr. Gabriel Romeo in 2-4 weeks, noted to have mild hypokalemia and mild transaminasemia on admission , normalized with IV fluids, persistent mild leukocytosis likely reactive no localizing signs of infection noted. Due to couple episodes of hyperglycemia hemoglobin A1c was checked and it is 6.3 recommend low-calorie diet and close outpatient follow-up of blood sugars. Time Attestation Discharge Coordination Time (in mins): 38 Quality: Safe Use of Opioids Does Pt have an Active Cancer Diagnosis on the Problem List?: No Quality: Stroke Does the patient have a stroke diagnosis?: No Physical Exam Vital Signs: Vital Signs: Last Vital Signs Temp 98.1 F 07/10/24 07:12 Pulse 89 07/10/24 07:12 Resp 16 07/10/24 07:12 BP 109/59 L 07/10/24 07:12 Pulse Ox 95 07/10/24 07:12 O2 Del Method Room Air 07/10/24 07:12 O2 Flow Rate 2 07/07/24 16:07 BMI result Body Mass Index 19.8 Const: Other: Gen: in no acute distress sclera anicteric Neck: supple Lungs: clear to auscultation bilaterally Heart: regular rate and rhythm, no murmurs Abd: soft, non-tender, non-distended, bowel sounds audible Ext: no edema, R hip dressing in place Skin: warm/well-perfused Neuro: alert and oriented x3, no focal findings Psych: appropriate affect Discharge Plan Discharge Anticipated Discharge Date/Time: 07/10/24 13:41 Patient Disposition: Xfer Inpatient Rehab Fac Discharge Diagnosis: Status post right femur fracture Referrals: [facility] [Outside] Physician,None [Primary Care Provider] - 1 Week Discharge Medications: New sennosides [Senna Lax] 8.6 mg Tablet 17.2 mg PO BEDTIME PRN (Reason: Constipation) Qty: 30 0RF acetaminophen 325 mg Tablet 650 mg PO Q6H PRN (Reason: Pain, Mild (Pain Scale 1-3), fever or headache) Qty: 30 0RF polyethylene glycol 3350 17 gram Powder In Packet 17 g PO DAILY Qty: 30 0RF docusate sodium 100 mg Capsule 100 mg PO BEDTIME Qty: 30 0RF oxycodone 5 mg Tablet 5 mg PO RQ4H PRN (Reason: Pain, Moderate(Pain Scale 4-6)) Qty: 12 0RF Rx Instructions: Partial Fill upon patient request. enoxaparin 40 mg/0.4 mL Syringe 40 mg subcut Q24H Qty: 4 0RF Rx Instructions: end date 08/05 Discontinued acetaminophen 500 mg Tablet 1,000 mg PO DAILY PRN (Reason: Pain) Discharge Orders: Discharge Order (Routine); Ordered 07/10/24 Ordered By: Flavio Major Diet: Advance to usual diet Activity on Discharge: As tolerated Stand Alone Forms: Patient Portal Discharge page Print Language: Kyrgyz Care Plan Goals: Right intertrochanteric Continue Lovenox for total 4 weeks started on 07/08 Pain medication as needed Tylenol for mild pain, oxycodone for [id number] pain. Health Concerns: Elevated hemoglobin A1c recommend to follow Plan of Treatment: Outpatient follow-up with orthopedic surgeon call for appointment Dr. Romeo Assessment: As above
--- NOTE | 2024-07-10 13:59 | P.OP_ITS ---
Operative Note Operative Note Date of Service: 07/07/24 Narrative: Date of Service: 07/07/24 Pre-op diagnosis: Right hip intertrochanteric femur fracture Post-op diagnosis: same Procedure: Right hip IMN Implants: [place] 125 deg 11x 340 imn with 85 mm hip screw and 45mm distal interlock Surgeon: Gabriel Romeo MD Anesthesia: GETA, GLMA and local Was an [employer] Applications Developer used for this Procedure?: No Estimated blood loss (mL): 150 IV fluids (mL): 750 Pathology: none sent Condition: stable Disposition: PACU Procedure in detail: Patient was brought to the operating room and prepped and draped in standard sterile fashion. Time-out was called to identify proper site procedure proper surgeon and IV antibiotics per weight were administered. She was positioned on the fracture table and a traction and slight internal rotation were performed and biplanar fluoroscopy confirmed initial fracture reduction. I then made a stab incision proximal to the greater trochanter in using a guidewire made a entry point just lateral to the tip of the greater trochanter and placed a guidewire into the femoral metadiaphysis. I then over-reamed with 15 mm Reamer placed my ball-tip guidewire down distally in the femur and measured my length. I selected a 125 deg [id number] nail and reamed up to a 13. I then inserted the nail. I then turned my attention to the hip screw where I used a guidewire and a tip apex distance of less than 1.5 measured 85mm hip screw. I then pre drilled and placed a hip screw using biplanar fluoroscopy. Once I was satisfied with the position of the hip screw I turned my attention to the distal aspect of the nail. Using perfect [place] technique I placed 1 static 45mm distal interlocking screw in standard AO technique. I then removed all I then placed my set screw proximally and removed all extraneous instrumentation. Final biplanar radiographs were taken. I was satisfied with the position of the hardware and the fracture reduction. I think copiously irrigated closed with absorbable sutures barb and injected 30 mL of into the area of the incisions. Traction was let down patient was placed in sterile dressing awakened from anesthesia brought to recovery room stable condition there were no known complications.
== END 2024-07-10 14:51 | DRG 482 ==
LOC: HO.ED 15:20 → HO.EDOVER 15:59 → HO.S3 16:06
PROVIDERS: Orthopaedic Surgery; Physician Assistant; Physician Assistant Medical; Admitting Provider Family Medicine; Emergency Provider Emergency Medicine; Visit Provider Hospitalist
PROC: 0QS636Z Reposition Right Upper Femur with Intramedullary Internal Fixation Device, Percutaneous Approach (ICD-10-PCS; principal; 2024-07-07 14:00)
DX: S72.141A Displaced intertrochanteric fracture of right femur, initial encounter for closed fracture (principal); W19.XXXA Unspecified fall, initial encounter; F17.210 Nicotine dependence, cigarettes, uncomplicated; Z71.6 Tobacco abuse counseling; E87.6 Hypokalemia; Z20.822 Contact with and (suspected) exposure to COVID-19
CPT/HCPCS: 0241U; 36415; 73502; 80048; 80053; 80076; 80307; 81001; 82248; 82550; 83036; 83690; 83735; 84484; 85014; 85018; 85025; 85027; 85652; 86140; 86850; 86900; 86901; 86923; 93005; 97116; 97161; 97165; 97530; 99285; C1713; C1758; J0131; J0690; J1100; J1650; J2003; J2270; J2405; J2704; J2795; J3010; J3480; J7120; P9016

== ENCOUNTER → 2024-07-06 13:20 | Outpatient (BNV) | payer MEDICARE, SELFPAY | PROVIDERS: Admitting Provider Family Medicine; Emergency Provider Emergency Medicine; Visit Provider Internal Medicine Cardiovascular Disease | DX: R94.31 Abnormal electrocardiogram [ECG] [EKG] (principal) | CPT/HCPCS: 93010 ==

== ENCOUNTER → 2024-07-06 15:47 | Outpatient (BNV) | payer MEDICARE, SELFPAY | PROVIDERS: Admitting Provider Family Medicine; Emergency Provider Emergency Medicine | DX: S72.141A Displaced intertrochanteric fracture of right femur, initial encounter for closed fracture (principal) | CPT/HCPCS: 27245; 99024; 99222 ==

== ENCOUNTER → 2024-07-06 15:47 | Outpatient (BNV) | payer MEDICARE, SELFPAY | PROVIDERS: Admitting Provider Family Medicine; Emergency Provider Emergency Medicine; Visit Provider Family Medicine | DX: S72.141A Displaced intertrochanteric fracture of right femur, initial encounter for closed fracture (principal) | CPT/HCPCS: 99222; 99231; 99232; 99239 ==

== ENCOUNTER 2024-08-02 07:51 | Outpatient (REF) | payer MEDICARE, SELFPAY | END 2024-08-02 07:52 | disposition home or self-care (01) | LOC: HO.HOSX 07:51 | PROVIDERS: Visit Provider Physician Assistant | DX: Z13.89 Encounter for screening for other disorder (principal) ==